=== PATIENT | male | born 1960 | race Caucasian/White ===

== ENCOUNTER 2017-05-07 23:40 | Emergency (ER) | payer OTHER ==
[~2017-05-07] VITALS: Ht 182.9 cm; Wt 77.1 kg
--- NOTE | ~2017-05-07 | CT71 ---
[facility] A Service of [facility] RADIOLOGY TEXT RESULTS PATIENT: EDSON PARRA LOCATION: [facility] : 60 UNIT #: [id number] AGE: [address]: Debbi Gray MD SEX: M ORDER DR: [id number] [place], [place] [address] [id number] MR#: [id number] Acc #: [id number] NAME: EDSON PARRA : 1960 SEX: M STUDY DATE/TIME: 05/08/2017 0:37 UNIT: [facility] ROOM: STUDY DESCRIPTION: CT Head Wo Contrast Attending Physician: Debbi Gray M.D. Ordering Physician: Debbi Gray M.D. Primary Care Physician: Primary Care Physician No MEDICAL IMAGING REPORT This report is preliminary unless electronic signature is present EXAMINATION Noncontrast CT head. DATE 05/08/2017 HISTORY Seizure activity tonight. Hypertension and weakness. Smoking history. COMPARISON MRI brain 01/08/2016. FINDINGS This CT exam was performed with one or more of the following radiation dose reduction techniques: Automatic exposure control, adjustment of mA and/or kV according to patient size, and iterative reconstruction. No acute intracranial hemorrhage, mass lesion, mass effect or midline shift is seen. Veliz matter-white matter junction distinction appears preserved without CT evidence of acute or evolving infarct. No evidence of hydrocephalus. Ventricular configuration is within normal limits. Paranasal sinuses and mastoid air cells appear clear. Calvarium is within normal limits. Mild intracranial carotid artery calcifications. IMPRESSION 1. No acute intracranial findings. Dictated by... Rosi Lim M.D. THIS IS AN ELECTRONICALLY VERIFIED REPORT Rosi Lim M.D. at 05/08/2017 9:39 PM [facility] A Service [facility] RADIOLOGY TEXT RESULTS PATIENT: EDSON PARRA LOCATION: [facility] : 60 UNIT #: [id number] AGE: [address]: Debbi Gray MD SEX: M ORDER DR: SHIRA/alicia TD: 05/08/2017 16:47 JOB #: [id number] MEDICAL IMAGING REPORT Page 1 of 1 COPY
--- NOTE | ~2017-05-07 | CR72 ---
[facility] A Service of [facility] RADIOLOGY TEXT RESULTS PATIENT: EDSON PARRA LOCATION: [facility] : 60 UNIT #: [id number] AGE: [address]: Debbi Gray MD SEX: M ORDER DR: [id number] [place], [place] [address] [id number] E MR#: [id number] Acc #: [id number] NAME: EDSON PARRA : 1960 SEX: M STUDY DATE/TIME: 05/08/2017 1:18 UNIT: [facility] ROOM: STUDY DESCRIPTION: CR Chest Single View Portable Attending Physician: Debbi Gray M.D. Ordering Physician: Debbi rGay M.D. Primary Care Physician: Primary Care Physician No MEDICAL IMAGING REPORT This report is preliminary unless electronic signature is present EXAM AP portable chest DATE 05/08/2017 at 01:18 HISTORY Seizure, confusion and shortness of breath today. COMPARISON None. FINDINGS No acute airspace disease. Normal heart size. No pleural effusion or pneumothorax. No acute osseous abnormality. IMPRESSION No acute cardiopulmonary findings. Dictated by... Rosi Lim M.D. THIS IS AN ELECTRONICALLY VERIFIED REPORT Rosi Lim M.D. at 05/08/2017 9:39 PM [facility]/alicia TD: 05/08/2017 16:55 JOB #: [id number] MEDICAL IMAGING REPORT Page 1 of 1 COPY
[2017-05-08 00:20] LABS: BASOPHIL# 0.1 X10e3 (0-0.3); BASOPHIL% 1.2 % (0-2.5); EOSINOPHIL# 0.1 X10e3 (0-0.7); EOSINOPHIL% 2.1 % (0.0-7.0); HEMATOCRIT 45.1 % (38.0-50.0); HEMOGLOBIN 15.7 gm/dL (13.0-16.0); LYMPHOCYTE# 1.7 X10e3 (1.0-3.5); LYMPHOCYTE% 31.5 % (17.0-45.0); MEAN CELL VOLUME 96.6 FL (83-96); MEAN CORPUSCULAR HEMOGLOBIN 33.6 PG (28-34); MEAN CORPUSCULAR HGB CONC 34.8 g/dL (30-36); MEAN PLATELET VOLUME 7.4 FL (6.5-11.5); MONOCYTE# 0.5 X10e3 (0-1.0); MONOCYTE% 8.9 % (3.0-12.0); NEUTROPHIL# 3.1 X10e3 (1.5-7.1); NEUTROPHIL% 56.3 % (40-75); PLATELET COUNT 185 X10e3 (140-420); RED BLOOD COUNT 4.67 X10e (3.90-5.60); RED CELL DISTRIBUTION WIDTH 14.3 % (11.0-15.5); WHITE BLOOD COUNT 5.6 X10e3 (4.0-10.5)
[2017-05-08 00:25] LABS: DIFF IND NO
[2017-05-08 00:44] LABS: BLOOD UREA NITROGEN 11 mg/dL (9-23); CALCIUM SERUM 9.2 mg/dL (8.4-10.2); CARBON DIOXIDE 24 mmol/L (22-31); CHLORIDE 94 mmol/L (100-111); GLOM FILT RATE Estimated 83.8 mL/min (>60); GLUCOSE FASTING 110 mg/dL (70-110); POTASSIUM 3.7 mmol/L (3.5-5.1); SODIUM 130 mmol/L (135-145)
[2017-05-08 00:50] LABS: ALCOHOL BLOOD <5 mg/dL (0)
[2017-05-08 01:02] LABS: URINE SOURCE CLEAN CATCH
[2017-05-08 01:10] LABS: URINE APPEARANCE CLEAR; URINE BILIRUBIN NEG (NEG); URINE BLOOD NEG (NEG); URINE COLOR YELLOW; URINE GLUCOSE NEG (NEG); URINE KETONE NEG (NEG); URINE LEUKOCYTE ESTERASE NEG (NEG); URINE NITRATE NEG (NEG); URINE PROTEIN 1+ (NEG); URINE SPECIFIC GRAVITY 1.016 (1.003-1.035); URINE UROBILINOGEN 0.2 MG/DL (NEG)
[2017-05-08 01:12] LABS: URINE BACTERIA AUWI NEG (NEGATIVE); URINE SQUAMOUS EPITHELIAL CELL NONE SEEN /[HPF]; UWBCS1 AUWI 0-2 (0-5)
[2017-05-08 01:13] LABS: CULTURE INDICATED? NO
[2017-05-08 01:20] LABS: AMPHETAMINE NEG (NEG); BARBITURATES NEG (NEG); BENZODIAZEPINES NEG (NEG); COCAINE NEG (NEG); MARIJUANA NEG (NEG); OPIATES NEG (NEG); TRICYCLIC ANTIDEPRESSANTS NEG (NEG); U METHADONE NEG (NEG)
== END 2017-05-08 01:43 | disposition home or self-care (01) ==
LOC: CED 23:40
PROVIDERS: Student in an Organized Health Care Education/Training Program
DX: G40.409 Other generalized epilepsy and epileptic syndromes, not intractable, without status epilepticus (principal); F17.200 Nicotine dependence, unspecified, uncomplicated
CPT/HCPCS: 36415; 70450; 71010; 80048; 80307; 81003; 85025; 96374; 96375; 99285; G0480; J0360; J1953